=== PATIENT | male | born 1980 | race Caucasian/White ===

== ENCOUNTER 2020-10-09 20:33 | Emergency (ER) | payer BC ==
[2020-10-09] MEDS ORDERED: Sodium Chloride 0.9% 10 ML Syringe FLUSH PRN (20:50)
[2020-10-09] MEDS ORDERED: Sodium Chloride 0.9% 1,000 ML IV STA (21:08)
[2020-10-09] MEDS ORDERED: Ondansetron 4 MG/2 ML SDV IVPUSH ONE (21:08)
--- NOTE | 2020-10-09 21:08 | EDM.PDOC ---
<Christine Salinas - Last Filed: 10/10/20 01:15> ED HPI GENERAL MEDICAL PROBLEM - General Chief Complaint: Abdominal Pain Stated Complaint: PAIN ON RIGHT SIDE OF ABDOMEN Time Seen by Provider: 10/09/20 20:48 - Related Data Allergies Allergy/AdvReac Type Severity Reaction Status Date / Time No Known Allergies Allergy Verified 10/09/20 20:48 Home Meds: Home Meds . [No Known Home Meds] 10/09/20 [History] ED ROS GENERAL - Review of Systems Review Of Systems: Comprehensive ROS is negative, except as noted in HPI. ED EXAM, GI/ABD - Physical Exam Exam: See Below Exam Limited By: No Limitations General Appearance: Alert, No Apparent Distress Head: Normocephalic Neck: Normal Inspection, Supple Respiratory/Chest: No Respiratory Distress, Lungs Clear, Normal Breath Sounds Cardiovascular: Regular Rate, Rhythm, No JVD, No Murmur GI/Abdominal Exam: Normal Bowel Sounds, No Organomegaly, No Distention, Tender (Right lower quadrant tenderness without psoas or obturator signs. Negative Rovsing.) Back Exam: Normal Inspection Extremities: Normal Inspection Neurological: Alert, Oriented Psychiatric: Normal Affect, Normal Mood Skin Exam: Warm, Dry Lymphatic: No Adenopathy Course - Vital Signs Text/Narrative:: Patient's white blood cell count was elevated at 13.3. There is left shift with 88 neutrophils and 10.6 absolute neutrophils. His CRP was 10.7. Urine was +2 ketones. He was feeling better after initial treatment but states his current pain is 4-5 out of 10 intensity. He is comfortable at rest and the pain is worse with movement. His CT scan shows him to have a ruptured appendix. Patient was then discussed with Dr. Urena who is the general surgeon at [facility] who is excepted him in transfer since we have no beds here. Patient did receive 4.5 g of Zosyn. He is aware of the impending transfer. Departure - Departure Time of Disposition: 01:14 Disposition: DC/Tfer to Acute Hospital 02 Condition: Fair Clinical Impression: Ruptured appendix - Discharge Information Instructions: Appendicitis, Adult Referrals: PCP,None [Primary Care Provider] - Forms: ED Department Discharge <Benita Mcclain - Last Filed: 10/12/20 22:38> ED HPI GENERAL MEDICAL PROBLEM - General Source of Information: Reports: Patient, RN Notes Reviewed History Limitations: Reports: No Limitations - History of Present Illness INITIAL COMMENTS - FREE TEXT/NARRATIVE: Patient is a 40-year-old male presenting to the emergency department with comp laints of right lower quadrant abdominal pain. He reports that symptoms began approximately 3 days ago with generalized abdominal discomfort. Today pain is localized to the right lower quadrant abdomen. States that he did feel febrile today and temperature home was 99.8. Temperature in triage 99.0. Denies any nausea, vomiting, diarrhea. He had a normal bowel movement a few hours prior to coming to ER. Denies any blood in his stools. He has no dysuria or hematuria. Denies any significant medical history. He has no previous abdominal surgeries. He reports that since arriving to the ER, the pain has improved but is still present. At home he was having intense, sharp stabbing pain that was worsening. Treatments POLICY ADVISOR: Reports: Other (see below) Other Treatments POLICY ADVISOR: none Right Lower Abdomen Pain Score (Numeric/FACES): 2 Past Medical History Dermatologic History: Reports: Melanoma Social & Family History - Tobacco Use Tobacco Use Status *Q: Never Tobacco User - Caffeine Use Caffeine Use: Reports: Coffee, Energy Drinks, Tea - Recreational Drug Use Recreational Drug Use: No Course - Vital Signs Last Recorded V/S: Last Vital Signs Temp 98.2 F 10/10/20 02:05 Pulse 72 10/10/20 02:05 Resp 15 10/10/20 02:05 BP 108/62 10/10/20 02:05 Pulse Ox 97 10/10/20 02:05 - Orders/Labs/Meds Labs: Laboratory Tests 10/09/20 10/09/20 10/09/20 Range/Units 21:09 21:09 21:09 WBC 13.28 H (4.23-9.07) K/mm3 RBC 5.34 (4.63-6.08) M/mm3 Hgb 14.4 (13.7-17.5) gm/dl Hct 43.1 (40.1-51.0) % MCV 80.7 (79.0-92.2) fl MCH 27.0 (25.7-32.2) pg MCHC 33.4 (32.2-35.5) g/dl RDW Std Deviation 40.4 (35.1-43.9) fL Plt Count 223 (163-337) K/mm3 MPV 10.3 (9.4-12.3) fl Neut % (Auto) 80.2 H (34.0-67.9) % Lymph % (Auto) 10.9 L (21.8-53.1) % [place] % (Auto) 7.1 (5.3-12.2) % Eos % (Auto) 1.4 (0.8-7.0) Baso % (Auto) 0.2 (0.1-1.2) % Neut # (Auto) 10.65 H (1.78-5.38) K/mm3 Lymph # (Auto) 1.45 (1.32-3.57) K/mm3 [place] # (Auto) 0.94 H (0.30-0.82) K/mm3 Eos # (Auto) 0.19 (0.04-0.54) K/mm3 Baso # (Auto) 0.03 (0.01-0.08) K/mm3 Manual Slide Review Sodium 142 (136-145) mEq/L Potassium 3.5 (3.5-5.1) mEq/L Chloride 102 (98-107) mEq/L Carbon Dioxide 29 (21-32) mEq/L Anion Gap 14.5 (5-15) BUN 18 (7-18) mg/dL Creatinine 1.1 (0.7-1.3) mg/dL Est Cr Clr Drug Dosing 87.23 mL/min Estimated GFR (MDRD) > 60 (>60) mL/min BUN/Creatinine Ratio 16.4 (14-18) Glucose 128 H (70-99) mg/dL Calcium 9.1 (8.5-10.1) mg/dL Total Bilirubin 0.9 (0.2-1.0) mg/dL AST 17 (15-37) U/L ALT 30 (16-63) U/L Alkaline Phosphatase 54 (46-116) U/L C-Reactive Protein 10.7 H* (<1.0) mg/dL Total Protein 7.6 (6.4-8.2) g/dl Albumin 4.2 (3.4-5.0) g/dl Globulin 3.4 gm/dL Albumin/Globulin Ratio 1.2 (1-2) Lipase 87 (73-393) U/L Urine Color Yellow (Yellow) Urine Appearance Clear (Clear) Urine pH 6.0 (5.0-8.0) Ur Specific Roe 1.025 (1.005-1.030) Urine Protein Negative (Negative) Urine Glucose (UA) Negative (Negative) Urine Ketones 2+ H (Negative) Urine Occult Blood Negative (Negative) Urine Nitrite Negative (Negative) Urine Bilirubin Negative (Negative) Urine Urobilinogen 0.2 (0.2-1.0) Ur Leukocyte Esterase Negative (Negative) Urine RBC 0-5 (0-5) /hpf Urine WBC 0-5 (0-5) /hpf Ur Squamous Epith Cells 0-5 (0-5) /hpf Urine Bacteria Occasional (FEW) /hpf Urine Mucus Not seen (FEW) /hpf SARS-CoV-2 RNA (RIDGE) (NEGATIVE) 10/10/20 Range/Units 00:31 WBC (4.23-9.07) K/mm3 RBC (4.63-6.08) M/mm3 Hgb (13.7-17.5) gm/dl Hct (40.1-51.0) % MCV (79.0-92.2) fl MCH (25.7-32.2) pg MCHC (32.2-35.5) g/dl RDW Std Deviation (35.1-43.9) fL Plt Count (163-337) K/mm3 MPV (9.4-12.3) fl Neut % (Auto) (34.0-67.9) % Lymph % (Auto) (21.8-53.1) % [place] % (Auto) (5.3-12.2) % Eos % (Auto) (0.8-7.0) Baso % (Auto) (0.1-1.2) % Neut # (Auto) (1.78-5.38) K/mm3 Lymph # (Auto) (1.32-3.57) K/mm3 [place] # (Auto) (0.30-0.82) K/mm3 Eos # (Auto) (0.04-0.54) K/mm3 Baso # (Auto) (0.01-0.08) K/mm3 Manual Slide Review Sodium (136-145) mEq/L Potassium (3.5-5.1) mEq/L Chloride (98-107) mEq/L Carbon Dioxide (21-32) mEq/L Anion Gap (5-15) BUN (7-18) mg/dL Creatinine (0.7-1.3) mg/dL Est Cr Clr Drug Dosing mL/min Estimated GFR (MDRD) (>60) mL/min BUN/Creatinine Ratio (14-18) Glucose (70-99) mg/dL Calcium (8.5-10.1) mg/dL Total Bilirubin (0.2-1.0) mg/dL AST (15-37) U/L ALT (16-63) U/L Alkaline Phosphatase (46-116) U/L C-Reactive Protein (<1.0) mg/dL Total Protein (6.4-8.2) g/dl Albumin (3.4-5.0) g/dl Globulin gm/dL Albumin/Globulin Ratio (1-2) Lipase (73-393) U/L Urine Color (Yellow) Urine Appearance (Clear) Urine pH (5.0-8.0) Ur Specific Roe (1.005-1.030) Urine Protein (Negative) Urine Glucose (UA) (Negative) Urine Ketones (Negative) Urine Occult Blood (Negative) Urine Nitrite (Negative) Urine Bilirubin (Negative) Urine Urobilinogen (0.2-1.0) Ur Leukocyte Esterase (Negative) Urine RBC (0-5) /hpf Urine WBC (0-5) /hpf Ur Squamous Epith Cells (0-5) /hpf Urine Bacteria (FEW) /hpf Urine Mucus (FEW) /hpf SARS-CoV-2 RNA (RIDGE) Negative (NEGATIVE) Meds: Medications Discontinued Medications Generic Name Dose Route Start Last Admin Trade Name Freq PRN Reason Stop Dose Admin Sodium Chloride 1,000 mls @ 150 mls/hr 10/09/20 21:08 10/09/20 21:25 Normal Saline IV 10/10/20 03:47 150 mls/hr NOW STA Administration Piperacillin Sod/Tazobactam 100 mls @ 200 mls/hr 10/10/20 00:11 10/10/20 00:30 Sod 4.5 gm/ Sodium Chloride IV 10/10/20 00:40 200 mls/hr ONETIME ONE Administration Iopamidol 100 ml 10/09/20 22:56 10/09/20 22:57 Iopamidol 612 Mg/Ml 100 Ml Bottle IVPUSH 10/09/20 22:57 100 ml ONETIME ONE Administration Ondansetron HCl 4 mg 10/09/20 21:08 10/09/20 21:26 Ondansetron 4 Mg/2 Ml Sdv IVPUSH 10/09/20 21:09 4 mg ONETIME ONE Administration Sodium Chloride 10 ml 10/09/20 20:50 10/09/20 21:26 Sodium Chloride 0.9% 10 Ml Syringe FLUSH 10 ml ASDIRECTED PRN Administration Keep Vein Open Sodium Chloride 10 ml 10/09/20 23:00 10/09/20 22:57 Sodium Chloride 0.9% 10 Ml Syringe FLUSH 10 ml BOLUS IMMANUEL Administration - Re-Assessments/Exams Free Text/Narrative Re-Assessment/Exam: Patient is a 40-year-old male presenting to the emergency department with complaints of right lower quadrant abdominal pain. On exam, he does have localized tenderness to right lower quadrant near McBurney's point. Has no rebound tenderness. Reports low-grade fever at home. Concern would be for possible appendicitis. I have ordered blood work, urinalysis, and a CT scan of the abdomen pelvis. He denies any need for pain medications at this time. I will give him Zofran to prevent nausea associated with oral contrast as well as IV fluids. 10/09/20 22:56 Hematology was significant for WBC minimally elevated at 13.28, CRP 10.7. Hematology and urinalysis are otherwise unremarkable. CT results are pending. Case discussed with ER physician, Dr. Salinas. He will assume care and disposition of patient pending CT results. Sepsis Event Note (ED) - Evaluation Sepsis Screening Result: No Definite Risk
[2020-10-09] MEDS ORDERED: Iopamidol 612 MG/ML 100 ML Bottle IVPUSH ONE (22:56)
[2020-10-09] MEDS ORDERED: Sodium Chloride 0.9% 10 ML Syringe FLUSH SCH (23:00)
[2020-10-10] MEDS ORDERED: Piperacillin/Tazobactam 4.5 GM in Sodium Chloride 0.9% 100 ML IV ONE (00:11)
--- NOTE | 2020-10-10 09:53 | CT ---
Addendum: When comparing to preliminary report issued by [facility] there is mention of the probability of ruptured appendix causing secondary colitis. I believe this is incorrect as the appendix is seen and is normal in size. Findings are felt compatible with primary colitis as mentioned on my final report. This is a disagree with the [facility] report, finalized on 10/10/20, 1:08 AM CDT, code 3 --- Addendum1 above dictated on [10/10/2020 11:06] by [Perfecto Martinez Hilton J.] --- --- Addendum1 above signed on [10/10/2020 11:14] by [Perfecto Martinez Hilton J.] --- --- Original report below dictated on [10/10/2020 09:46] by [Perfecto Martinez Hilton J.] --- --- Original report below signed on [10/10/2020 09:51] by [Perfecto Martinez Hilton J.] --- CT abdomen and pelvis Technique: Multiple axial sections through the abdomen and pelvis. Intravenous and oral contrast was utilized. Delayed images were also obtained through the abdomen and pelvis. Reconstructed coronal and sagittal images were obtained. Comparison: No prior imaging is available. Findings: Inflammatory change is seen around a portion of the sigmoid colon with adjacent wall thickening. This is compatible with colitis. No other inflammatory change is seen around the bowel. No other areas of bowel wall thickening are noted. Visualized lung bases show nothing acute. Liver contains no focal parenchymal abnormality. Gallbladder contains no calcified gallstones. Spleen size is at the upper limits of normal measuring 13.7 cm. Pancreas shows no discrete abnormality. Adrenal glands show no nodule. Kidneys show symmetric contrast enhancement with no hydronephrosis being seen. Very small cyst is noted within the right kidney measuring 7 mm. Abdominal aorta shows no aneurysm. No retroperitoneal adenopathy is seen. No pelvic mass or adenopathy is seen. Bone window settings were reviewed. Disc space narrowing is seen at L4-5 with vacuum phenomena. Lesser degenerative change is seen within the spine. No acute osseous abnormality is initiated. Impression: 1. Bowel wall thickening with prominent inflammatory change being seen around a portion of the sigmoid colon. This is most likely due to a focal area of inflammation from colitis. 2. Other findings as noted above believed to be incidental. Diagnostic code #3 --- Addendum1 signed ---
== END 2020-10-10 02:05 ==
LOC: JD.ED 20:33
DX: K35.32 Acute appendicitis with perforation, localized peritonitis, and gangrene, without abscess (principal); D72.829 Elevated white blood cell count, unspecified; Z20.822 Contact with and (suspected) exposure to COVID-19
CPT/HCPCS: 36415; 74177; 80053; 81001; 83690; 85025; 86140; 87635; 96365; 96375; 99285; J2405; J2543; J7030; Q9967; U0002